=== PATIENT | female | born 1945 | race Caucasian/White ===

== ENCOUNTER → 2016-06-21 21:50 | Outpatient (CLI) | payer MEDICARE ==
[2011-02-15 13:54] VITALS: BMI 25.7
== END | disposition home or self-care (01) ==
LOC: D.LABREF 21:50
DX: I48.91 Unspecified atrial fibrillation (principal)

== ENCOUNTER → 2016-06-22 19:49 | Outpatient (CLI) | payer MEDICARE ==
[2011-02-15 13:54] VITALS: BMI 25.7
[2016-06-22 20:36] LABS: ALBUMIN 4.5 g/dL (3.4-5.0); ALKALINE PHOSPHATASE 66 U/L (46-116); ALT (SGPT) 35 U/L (10-68); BILIRUBIN - TOTAL 0.41 mg/dL (0.2-1.3); CALC OSMOLALITY 278 mosm/kg (275-300); CALCIUM 9.4 mg/dL (8.5-10.1); CARBON DIOXIDE 27.3 mmol/L (21.0-32.0); CHLORIDE - SERUM 101 mmol/L (98-107); CHOL - HDL RATIO 3.4 ratio (2.3-4.1); CHOLESTEROL, TOTAL 182 mg/dL (0-200); CREATININE - SERUM 0.8 mg/dL (0.6-1.3); GLUCOSE 91 mg/dL (74-106); HDL CHOLESTEROL 54 mg/dL (32-96); LDL CHOLESTEROL 97 mg/dL (0-100); LDL-HDL RATIO 1.8 ratio (1.5-3.5); POTASSIUM - SERUM 4.3 mmol/L (3.5-5.1); PROTEIN - SERUM 7.8 g/dL (6.4-8.2); SODIUM 140 mmol/L (136-145); TRIGLYCERIDE 159 mg/dL (30-200); UREA NITROGEN 13 mg/dL (7-18); eGFR NON AFRICAN AMERICAN 75 mL/min (90-120)
== END | disposition home or self-care (01) ==
LOC: D.LABREF 19:49
PROVIDERS: Family Medicine
DX: E78.5 Hyperlipidemia, unspecified (principal)

== ENCOUNTER → 2017-01-23 16:48 | Outpatient (CLI) | payer MEDICARE ==
[2011-02-15 13:54] VITALS: BMI 25.7
== END | disposition home or self-care (01) ==
LOC: D.MAMMO 13:15
DX: Z12.31 Encounter for screening mammogram for malignant neoplasm of breast (principal)